=== PATIENT | female | born 2000 | race African-American/Black ===

== ENCOUNTER 2024-06-23 09:46 | Emergency (ER) | payer OTHER ==
[~2024-06-23] VITALS: Ht 167.6 cm; Wt 80.6 kg
[2024-06-23 09:49] VITALS: BP 118/77; TEMP 100.5; O2SAT 100
[2024-06-23] MEDS: ACETAMINOPHEN 500 MG TAB PO ONE (11:40)
== END 2024-06-23 12:59 | disposition home or self-care (01) ==
LOC: M ED 09:46
DX: J06.9 Acute upper respiratory infection, unspecified (principal); Z11.52 Encounter for screening for COVID-19

== ENCOUNTER → 2024-09-12 | Outpatient (REF) | LOC: M EMP 07:32 | PROVIDERS: ATTEND Family Medicine | DX: Z01.89 Encounter for other specified special examinations (principal) ==